=== PATIENT | female | born 1980 | race African-American/Black ===

== ENCOUNTER 2023-09-02 06:48 | Emergency (ER) | payer OTHER, SELFPAY ==
[2023-09-02 06:53] VITALS: BP 119/80; PULSE 91; RESP 17; TEMP 36.6; O2SAT 98; BMI 42.4
== END 2023-09-02 07:36 | disposition left against medical advice (07) ==
LOC: HO.ED 07:28
PROVIDERS: Emergency Provider Emergency Medicine
DX: R51.9 Headache, unspecified (principal)
CPT/HCPCS: 99281